=== PATIENT | male | born 1995 | race Caucasian/White ===

== ENCOUNTER 2016-08-13 05:27 | Emergency (ER) | payer OTHER ==
[2016-08-13 06:29] LABS: BASOPHIL % 0.3 % (0-2); PLATELET COUNT 227 x10^3mcL (130-400); RED CELL DISTRIBUTION WIDTH 12.9 % (11.5-14.5)
[2016-08-13 06:41] LABS: CALCIUM 9.4 mg/dL (8.5-10.1); CARBON DIOXIDE 26.4 mmol/L (21-32); CHLORIDE SERUM 104 mmol/L (98-107); CREATININE SERUM 0.9 mg/dL (0.7-1.3); GFR1 > 60 mL/min; GLUCOSE SERUM 120 mg/dL (74-106); POTASSIUM SERUM 3.5 mmol/L (3.5-5.1); SODIUM SERUM 144 mmol/L (136-145)
[2016-08-13 06:44] LABS: ALBUMIN 4.7 g/dL (3.4-5.0); ALKALINE PHOSPHATASE 73 U/L (46-116); ALT/SGPT 20 U/L (16-63); AST/SGOT 17 U/L (15-37); LIPASE 47 IU/L (73-393)
[2016-08-13 07:40] VITALS: BP 120/71
== END 2016-08-13 07:25 | disposition home or self-care (01) ==
LOC: ED 05:27
PROVIDERS: Emergency Medicine
DX: K29.00 Acute gastritis without bleeding (principal); R11.10 Vomiting, unspecified; E86.0 Dehydration; F12.229 Cannabis dependence with intoxication, unspecified
CPT/HCPCS: J1885; J2060; J2405; J7030; Q9967

== ENCOUNTER 2016-10-31 12:49 | Emergency (ER) | payer MEDICAID ==
[2016-10-31 14:59] VITALS: BP 115/72
== END 2016-10-31 14:59 | disposition home or self-care (01) ==
LOC: ED 12:49
DX: S16.1XXA Strain of muscle, fascia and tendon at neck level, initial encounter (principal); R07.89 Other chest pain; Y08.89XA Assault by other specified means, initial encounter; Y93.89 Activity, other specified; Y99.8 Other external cause status; Y92.89 Other specified places as the place of occurrence of the external cause
CPT/HCPCS: J1885

== ENCOUNTER 2016-11-29 11:59 | Emergency (ER) | payer MEDICAID ==
[~2016-11-29] VITALS: Ht 177.8 cm; Wt 64.9 kg
[2016-11-29 15:10] VITALS: BP 118/88
== END 2016-11-29 15:10 | disposition home or self-care (01) ==
LOC: ED 11:59
DX: G44.209 Tension-type headache, unspecified, not intractable (principal); R11.10 Vomiting, unspecified
CPT/HCPCS: J0780; J1885

== ENCOUNTER 2018-06-20 14:36 | Emergency (ER) | payer OTHER ==
[~2018-06-20] VITALS: Ht 177.8 cm; Wt 60.3 kg
[2018-06-20 14:51] VITALS: Ht 177.8 cm; Wt 60.3 kg
[2018-06-20 17:13] VITALS: BP 116/69
== END 2018-06-20 17:30 | disposition home or self-care (01) ==
LOC: ED 14:36
DX: R21 Rash and other nonspecific skin eruption (principal); L29.9 Pruritus, unspecified
CPT/HCPCS: J1100; Q0163